=== PATIENT | male | born 1995 | race American Indian/Alaskan Native ===

== ENCOUNTER 2021-10-07 21:04 | Emergency (ER) | payer SELFPAY ==
[2021-10-07 23:26] VITALS: BP 110/64
--- NOTE | 2021-10-08 00:13 | Emergency Department Report ---
ED Male HPI - General Chief complaint: Urogenital-Male Stated complaint: POSS STD Source: patient Mode of arrival: Ambulatory Limitations: No Limitations - History of Present Illness Initial comments: Patient is a 26-year-old -[place] male with no past medical history presented to the ED with complaint of acute onset persistent painful ulcerated lesions in the penile shaft for 1 week. Patient states that the pain has been persistent worse especially in the last 3 days. Patient denies dysuria, urinary frequency and urgency, penile discharge, testicular pain, fever, chills, cough, chest pain, shortness of breath, sore throat or abdominal pain. MD Complaint: other (penile pain, ulcerated lesions) -: Sudden, week(s) (1) Location: penis Radiation: none Severity scale (0 -10): 8 Quality: burning, sharp Consistency: constant Improves with: none Worsens with: none denies other symptoms, rash (ulcerated painful lesions in th epenile shaft). denies: discharge, swelling, mass, urinary retention, blood in urine, dysuria, fever, nausea/vomiting, incontinence - Related Data Sexually active: Yes Previous Rx's Medication Instructions Recorded Last Taken Type DOXYCYCLINE Hyclate [Vibramycin 100 mg PO Q12HR #14 capsule 05/08/15 Unknown Rx CAP] Acyclovir 400 mg PO Q8H #30 tablet 10/08/21 Unknown Rx Acyclovir [Acyclovir Ointment] 1 applicatio TP 5XD #1 tube 10/08/21 Unknown Rx Ibuprofen [Motrin] 600 mg PO Q8H PRN #24 tablet 10/08/21 Unknown Rx Allergies Allergy/AdvReac Type Severity Reaction Status Date / Time No Known Allergies Allergy Verified 05/07/15 23:52 ED Review of Systems ROS: Stated complaint: POSS STD Other details as noted in HPI Constitutional: denies: chills, fever Eyes: denies: eye pain, eye discharge, vision change ENT: denies: ear pain, throat pain Respiratory: denies: cough, shortness of breath, wheezing Cardiovascular: denies: chest pain, palpitations Endocrine: no symptoms reported Gastrointestinal: denies: abdominal pain, nausea, diarrhea Genitourinary: other (painful ulcerated lesions in the penile shaft). denies: urgency, dysuria, frequency, hematuria, discharge, testicular pain, testicular mass Musculoskeletal: denies: back pain, joint swelling, arthralgia Skin: rash (ulcerated painful lesions in the penile). denies: lesions, change in color, change in hair/nails, pruritus Neurological: denies: headache, weakness, paresthesias Psychiatric: denies: anxiety, depression Hematological/Lymphatic: denies: easy bleeding, easy bruising ED Past Medical Hx - Past Medical History Previous Medical History?: No Hx Asthma: Yes - Surgical History Past Surgical History?: No - Social History Smoking Status: Never Smoker Substance Use Type: None - Medications Home Medications: Home Medications Medication Instructions Recorded Confirmed Last Taken Type DOXYCYCLINE Hyclate [Vibramycin 100 mg PO Q12HR #14 capsule 05/08/15 Unknown Rx CAP] Acyclovir 400 mg PO Q8H #30 tablet 10/08/21 Unknown Rx Acyclovir [Acyclovir Ointment] 1 applicatio TP 5XD #1 tube 10/08/21 Unknown Rx Ibuprofen [Motrin] 600 mg PO Q8H PRN #24 tablet 10/08/21 Unknown Rx ED Physical Exam - General Limitations: No Limitations General appearance: alert, in no apparent distress - Head Head exam: Present: atraumatic, normocephalic, normal inspection - Eye Eye exam: Present: normal appearance, PERRL, EOMI Pupils: Present: normal accommodation - ENT ENT exam: Present: normal exam, normal orophraynx, mucous membranes moist, TM's normal bilaterally, normal external ear exam - Neck Neck exam: Present: normal inspection, full ROM - Respiratory Respiratory exam: Present: normal lung sounds bilaterally. Absent: respiratory distress, wheezes, rales, rhonchi, chest wall tenderness, accessory muscle use, decreased breath sounds, prolonged expiratory - Cardiovascular Cardiovascular Exam: Present: regular rate, normal rhythm, normal heart sounds. Absent: systolic murmur, diastolic murmur, rubs, gallop - GI/Abdominal GI/Abdominal exam: Present: soft, normal bowel sounds. 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 Absent: swelling - Extremities Exam Extremities exam: Present: normal inspection, full ROM, normal capillary refill. Absent: tenderness, pedal edema, joint swelling, calf tenderness - Back Exam Back exam: Present: normal inspection, full ROM. Absent: tenderness, CVA tenderness (R), CVA tenderness (L), muscle spasm, paraspinal tenderness - Neurological Exam Neurological exam: Present: alert, oriented X3, CN II-XII intact, normal gait, reflexes normal - Psychiatric Psychiatric exam: Present: normal affect, normal mood - Skin Skin exam: Present: warm, dry, intact, normal color, rash (Ulcerated tender open lesions in the penile shaft), erythema, vesicles. Absent: cyanosis, diaphoretic, urticaria, petechiae, pallor, abrasion, other ED Course Vital Signs 10/07/21 21:04 Temperature 98.9 F Pulse Rate 56 L Respiratory 18 Rate Blood Pressure 110/64 [Right] O2 Sat by Pulse 94 Oximetry ED Medical Decision Making - Medical Decision Making This is a 26-year-old -[place] male with no past medical history presented to the ED with complaint of acute onset persistent painful ulcerated lesions in the penile shaft for 1 week. Patient states that the pain has been persistent worse especially in the last 3 days. In the ED, patient is alert and oriented x3 and is not in any distress. Patient will discharge home on medications based on the physical exam findings of suspected genital herpes infection. Patient advised return to the ED immediately if symptoms get worse, otherwise advised to follow-up with the [facility] department for further STD testing. - Differential Diagnosis Genital herpes; UTI; STD Critical care attestation.: If time is entered above; I have spent that time in minutes in the direct care of this critically ill patient, excluding procedure time. ED Disposition Clinical Impression: Primary genital herpes simplex infection Disposition: 01 HOME / SELF CARE / HOMELESS Is pt being admited?: No Does the pt Need Aspirin: No Condition: Stable Instructions: Genital Herpes, Viral Illness, Adult Additional Instructions: Take medication with food, drink plenty of fluids and follow-up with [facility] for further evaluation and STD testing including HIV, and syphilis. Return to the ED immediately if symptoms get worse. Prescriptions: Acyclovir 400 mg PO Q8H #30 tablet Acyclovir [Acyclovir Ointment] 1 applicatio TP 5XD #1 tube Ibuprofen [Motrin] 600 mg PO Q8H PRN #24 tablet PRN Reason: Pain Referrals: [facility] Depart [Outside] - 7-10 days Time of Disposition: 00:15 Print Language: BULGARIAN
== END 2021-10-08 01:20 | disposition home or self-care (01) ==
LOC: ED 21:04
DX: A60.00 Herpesviral infection of urogenital system, unspecified (principal)
CPT/HCPCS: 99282

== ENCOUNTER 2022-01-02 18:42 | Emergency (ER) | payer SELFPAY | END 2022-01-02 18:53 | disposition left against medical advice (07) | LOC: ED 18:42 | DX: R21 Rash and other nonspecific skin eruption (principal); Z53.21 Procedure and treatment not carried out due to patient leaving prior to being seen by health care provider ==